=== PATIENT | female | born 1970 | race American Indian/Alaskan Native ===

== ENCOUNTER 2017-04-03 06:41 | Day surgery (SDC) | payer OTHER ==
[2017-04-03] MEDS ORDERED: NACL 0.9% 500 ML 500 ML IV SCH (09:00)
[2017-04-03] MEDS ORDERED: DIPRIVAN 10 MG/ML IV ONE ×2 (09:18→09:19)
[2017-04-03] MEDS ORDERED: XYLOCAINE MPF 2% ONE (09:30)
[2017-04-03] MEDS ORDERED: ROBINUL ONE (09:30)
[2017-04-03] MEDS ORDERED: HURRICAINE ONE 20% TOPICAL SPRAY MM (09:40)
[2017-04-03] MEDS ORDERED: HURRICAINE ONE 20% TOPICAL SPRAY MM NR (09:55)
[2017-04-03] MEDS ORDERED: ZOFRAN ONE (10:29)
--- NOTE | 2017-04-03 10:57 | Anesthesia Consultation ---
Anesthesia Consult and Med Hx Date of service: 04/03/17 - Airway Anesthetic Teeth Evaluation: Good ROM Head & Neck: Adequate Mental/Hyoid Distance: Adequate Mallampati Class: Class II Intubation Access Assessment: Probably Good - Pulmonary Exam CTA: Yes - Cardiac Exam Cardiac Exam: RRR - Pre-Operative Health Status ASA Pre-Surgery Classification: ASA3 Proposed Anesthetic Plan: MAC - Pulmonary Hx Smoking: No Hx Sleep Apnea: No - Cardiovascular System Hx Hypertension: No - Central Nervous System CVA: Yes Hx Psychiatric Problems: Yes - Endocrine Hx Renal Disease: No Hx Liver Disease: No Hx Non-Insulin Dependent Diabetes: Yes - Hematic Hx Anemia: No - Other Systems Hx Cancer: No
--- NOTE | 2017-04-03 10:57 | Post Anesthesia Evaluation ---
- Post Anesthesia Evaluation Patient Participated: Yes Airway Patent: Yes Stable Respiratory Function: Yes Nausea/Vomiting: No Temp > 96.8F: Yes Pain Manageable: Yes Adequeate Hydration: Yes Anesthesia Complications: No Block Receding Appropriately: Not Applicable Patient on Ventilator: No
--- NOTE | 2017-04-03 10:57 | Anesthesia Day of Surgery ---
Anesthesia Day of Surgery - Day of Surgery Patient Examined: Yes Patient H&P Reviewed: Yes Patient is NPO: Yes
[2017-04-03] MEDS ORDERED: ZOFRAN IV ONE (12:00)
[2017-04-03 13:09] VITALS: BP 119/80
[2017-04-07] MEDS ORDERED: ROBINUL ONE (09:14)
== END 2017-04-03 13:00 | disposition home or self-care (01) ==
LOC: OPU 06:41 → EDSTATUS 08:30 → OPU 13:00
PROVIDERS: ATTEND Internal Medicine
DX: I70.0 Atherosclerosis of aorta (principal); I08.1 Rheumatic disorders of both mitral and tricuspid valves; E78.5 Hyperlipidemia, unspecified; E11.9 Type 2 diabetes mellitus without complications; Z79.899 Other long term (current) drug therapy; Z79.84 Long term (current) use of oral hypoglycemic drugs; Z86.73 Personal history of transient ischemic attack (TIA), and cerebral infarction without residual deficits
CPT/HCPCS: 93312; 93320; 93325; 96374; J2405; J2704; J7040